=== PATIENT | female | born 1990 | race Caucasian/White ===

== ENCOUNTER → 2018-01-05 | Outpatient (CLI) | payer OTHER ==
[~2018-01-05] MED LIST: LEXAPRO 10 MG T10 MG PO; NABUMETONE 500500 M1 PO; NOHOMEMEDICATIONS
--- NOTE | 2018-01-06 09:37 | PAINCON ---
[place] [address] PAIN MANAGEMENT CONSULTATION Name: TETO HARRIS [facility] [id number] Admission: 01/05/18 Attend Phys: Antoinette Grubbs Discharge: Date of : 89 Report #: [id number] THIS REPORT FOR: //name// CC: Mary Jane Villaseñor DATE OF SERVICE: 01/05/2018 REFERRING PHYSICIAN: Mary Jane Dasilva DO. The patient is a very pleasant 27-year-old female, seen in consultation at the request of Dr. Dasilva for assistance with management of pain, low back and left leg. The patient has a very interesting medical history. 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 She has multiple cafe au lait spots over her body. Has a large neurofibroma on the right side of her face. Due to change in parental employment, she has been seen at multiple pediatric centers including [place], [place] and [place]. She moved to [place] around 2010. She has been followed at [facility] by Dr. Frankie Medrano. She notes she has had some chronic pain low back, left leg, but notes the past year, symptoms have been getting worse with weakness in the left leg, increasing pain in the lateral aspect of the leg to the foot. She notes periodic shooting, cramping, aching, sharp pain that she rates anywhere from 0-7 on a visual analog scale. She denies any myelopathic symptoms. No bowel or bladder incontinence. REVIEW OF SYSTEMS: Complete review of systems was attached to chart and gone over with the patient. She is single, seen in the company of her mother who is supportive. 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 She does not smoke or drink alcohol to excess. Does have a little chronic anxiety for which she takes Lexapro. Has been taking NSAID agents for some time with nominal efficacy. She had 3 spontaneous pneumothorax in 2010, 2 treated with chest tube. Symptoms have been unremarkable since. Pain impact score is fairly modest. PHYSICAL EXAMINATION: Reveals a 5 feet 2 inches, 129-pound female, BMI is 23.4 kg/m2. Blood pressure is 131/77, pulse 79, respirations are 16. She is alert and oriented to person, place, and time, judged to be a reasonable historian. Extraocular muscles are intact. There is no nyst[place] [address] PAIN MANAGEMENT CONSULTATION Name: TETO HARRIS Room: [facility]#: [id number] Admission: 01/05/18 Attend Phys: Antoinette Grubbs Discharge: Date of : 92 Report #: [id number] deviation. Does have a neurofibroma in the right side of the head and temporal area. Cervical range of motion is generally full. Thyroid is modestly enlarged. Upper extremity strength is generally preserved. Deep tendon reflexes are symmetric. Heart is regular and rhythmical without murmur. Lungs are clear to auscultation. Rises from chair using armrest. Does have a little thoracolumbar scoliosis. Lumbar flexion is good to about 90 degrees. Does have some left gluteal hypertrophy. Left leg is diminished in strength . Hip flexion and extension and plantar flexion about 3/5. Right leg is little stronger 4/5. Grossly positive straight leg raise at 30 degrees on the left. SVEN test is negative. Hip range of motion is full. DIAGNOSTIC STUDIES: Most recent diagnostic study is MRI of 12/09/2017. I reviewed this with the patient today. Does have some enlargement of the right S1-S2, S2-S3, S3-S4 neural foramen on the right and enlargement of the left S1-S2 sacral foramen. L4-L5 notes mild bilateral facet arthropathy. I believe primary pathology is coming from the L5-S1 area where there is a 0.5 cm anterolisthesis, some enlargement of the spinal canal, bilateral facet arthropathy and moderate left as well as moderate to advance right neural foraminal stenosis. There is dextroconvex scoliosis noted in the lumbar spine. ASSESSMENT: Symptomatic lumbar radiculopathy in left L5 radicular pattern in a patient with neurofibromatosis. RECOMMENDATION: 1. Discussion with the patient and her mother today about therapeutic option. I would like to continue nonsteroidal anti-inflammatory, discontinue vtbr-hoe-pditeve anti-inflammatories. We will start nabumetone 5 mg b.i.d. for 30 days. 2. We discussed proceeding with epidural injection under fluoroscopy next week. If this affords transient relief, we can consider repeat injection. If this affords good incremental relief, we will simply see on an as needed basis. Thanks for allowing me to participate in the patient's care. We will keep you abreast of her progress. <ELECTRONICALLY SIGNED> By: Zain Dumont DO 01/06/18 0937 1349 1914Zain Dumont DO /nt
== END ==
LOC: M.PC 04:40
DX: M54.16 Radiculopathy, lumbar region (principal); Q85.00 Neurofibromatosis, unspecified

== ENCOUNTER → 2018-01-12 | Outpatient (CLI) | payer OTHER ==
--- NOTE | 2018-01-17 08:35 | PAINCON ---
[facility] [address] [place] [address] PAIN MANAGEMENT CONSULTATION Name: TETO HARRIS [facility] [id number] Admission: 01/12/18 Attend Phys: Antoinette Grubbs Discharge: Date of : 92 Report #: [id number] THIS REPORT FOR: //name// CC: Maggie Dumont DATE OF SERVICE: 01/12/2018 PAIN CLINIC NOTE SUBJECTIVE: The patient is a very pleasant 27-year-old female seen in consultation on 01/05/2018 diagnosed with symptomatic lumbar radiculopathy secondary component of neurofibromatosis. We sought authorization for epidural injection under fluoroscopy today. I had given the patient a prescription for nabumetone 500 mg b.i.d. at that time; however, she did not get the prescriptions filled. She is continuing to use [id number] NSAID. Physical exam today is unchanged. Subjective pain score is 3 on a VAS. Pain down to the left leg. ASSESSMENT: Symptomatic lumbar radiculopathy, clinical exam and history. RECOMMENDATION: Lumbar epidural injection under fluoroscopy. PROCEDURE NOTE: After both written and informed consent to include risk of spinal cord damage, increased pain, weakness and dural puncture, the patient was taken to the fluoroscopy suite, placed in the prone position. After sterile prep and drape, a skin wheal with lidocaine was raised. A 22-gauge epidural Tuohy needle was inserted in the midline at L4-L5 with good loss to resistance. Negative aspiration for cerebrospinal fluid or blood was noted. Then 1 mL of Omnipaque under biplanar fluoroscopy showed good spread within the epidural space. This was followed with 80 mg of triamcinolone plus 1 mL of 1.5% preservative-free Xylocaine, 0.5 mL Xylocaine was then injected to flush the needle; it was removed. The patient was monitored for an appropriate period of time and discharged in good and stable condition. <ELECTRONICALLY SIGNED> By: Zain Dumont DO 01/17/18 0835 1339 [id number] Dumont DO /nt
== END | disposition home or self-care (01) ==
LOC: M.PC 03:00
DX: M54.16 Radiculopathy, lumbar region (principal); Q85.01 Neurofibromatosis, type 1; G89.29 Other chronic pain; F41.8 Other specified anxiety disorders; Z79.1 Long term (current) use of non-steroidal anti-inflammatories (NSAID); Z87.09 Personal history of other diseases of the respiratory system

== ENCOUNTER → 2018-02-02 | Outpatient (CLI) | payer OTHER ==
--- NOTE | 2018-02-03 07:50 | PAINCON ---
[address] [address] PAIN MANAGEMENT CONSULTATION Name: TETO HARRIS Room: [facility] Jo#: [id number] Admission: 02/02/18 Attend Phys: Antoinette Grubbs Discharge: Date of : 92 Report #: [id number] THIS REPORT FOR: //name// CC: Maggie Dumont The patient is a very pleasant 28-year-old female, prior seen in the pain clinic 01/12/2018, we did a single epidural injection at that time, returns to pain clinic today noting incremental improvement of baseline pain, perhaps 50%, still has a chronic weakness in the left leg, though this predated her radicular symptoms. She is improving function. Straight leg raise is equivocal on the left. She still has pain that interferes with function. Discussion with the patient today about therapeutic option. We have elected to repeat lumbar epidural injection under fluoroscopy today. Follow up in 4 weeks to reevaluate. ASSESSMENT: Symptomatic lumbar radiculopathy by clinical exam and history, incremental improvement of baseline pain. RECOMMENDATION: Epidural injection under fluoroscopy today, midline at L5-S1. Discharged in good and stable condition. <ELECTRONICALLY SIGNED> By: Zain Dumont DO 02/03/18 0750 1420 [id number] Centermachelle Dumont DO /nt
--- NOTE | 2018-02-09 07:25 | PAINCON ---
[address] [address] PAIN MANAGEMENT CONSULTATION Name: TETO HARRIS [id number] Admission: 02/02/18 Attend Phys: Antoinette Grubbs Discharge: Date of : 89 Report #: [id number] THIS REPORT FOR: //name// CC: Maggie Dumont PROCEDURE: Lumbar epidural injection under fluoroscopy. INDICATION: Symptomatic lumbar radiculopathy with incremental improvement following single injection. PROCEDURE NOTE: After both written and informed consent to include risk of spinal cord damage, increased pain, weakness and dural puncture, the patient was taken to the fluoroscopy suite, placed in the prone position. After sterile prep and drape, a skin wheal with lidocaine was raised. A 22-gauge epidural Tuohy needle was inserted in the midline at L5-S1 with good loss to resistance. Negative aspiration for cerebrospinal fluid or blood was noted. Then 1 mL of Omnipaque under biplanar fluoroscopy showed good spread within the epidural space. This was followed with 80 mg of triamcinolone plus 1 mL of 1.5% preservative-free Xylocaine, 0.5 mL Xylocaine was then injected to flush the needle; it was removed. The patient was monitored for an appropriate period of time and discharged in good and stable condition. <ELECTRONICALLY SIGNED> By: Zain Dumont DO 02/09/18 0725 0743 [id number] Dumont DO /duane
== END | disposition home or self-care (01) ==
LOC: M.PC 03:56
DX: M54.16 Radiculopathy, lumbar region (principal); G89.29 Other chronic pain; Z98.890 Other specified postprocedural states; Z79.899 Other long term (current) drug therapy

== ENCOUNTER → 2018-02-23 | Outpatient (CLI) | payer OTHER ==
--- NOTE | 2018-02-24 06:59 | PAINCON ---
[address] [address] PAIN MANAGEMENT CONSULTATION Name: TETO HARRIS Room: [facility] Jo#: [id number] Admission: 02/23/18 Attend Phys: Antoinette Grubbs Discharge: Date of : 92 Report #: [id number] THIS REPORT FOR: //name// CC: Maggie Dumont The patient is a 28-year-old female, being treated for symptomatic lumbar radiculopathy, comorbidity includes history of neurofibromatosis. Last seen in the pain clinic 02/02/2018. We did a second epidural injection, which the patient reports over 70% overall improvement; she still, however, has pain in the right leg, which is exacerbated with activity. 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 She notes the right leg occasionally goes to sleep and has some subjective weakness with this maneuver. PHYSICAL EXAMINATION: Shows a pleasant 28-year-old female, BMI is 23.7 kg/m2. Blood pressure 125/81, pulse 66, and respirations 16. Rises from chair using armrest. Gait is modestly antalgic favoring the right leg (chronic left lower extremity weakness by history), does have some left gluteal hypertrophy secondary to neurofibromatosis. Positive straight leg raise on the left. ASSESSMENT: Symptomatic lumbar radiculopathy by clinical exam and history. The patient said good incremental relief greater than 60% with 2 injections, but still has pain that continues to be problematic. We elected to proceed with repeat epidural injection under fluoroscopy today and follow up simply as needed. PROCEDURE: Lumbar epidural injection under fluoroscopy. PROCEDURE NOTE: After both written and informed consent to include risk of spinal cord damage, increased pain, weakness and dural puncture, the patient was taken to the fluoroscopy suite, placed in the prone position. After sterile prep and drape, a skin wheal with lidocaine was raised. A 22-gauge epidural Tuohy needle was inserted in the midline at L4-L5 with good loss to resistance. Negative aspiration for cerebrospinal fluid or blood was noted. Then 1 mL of Omnipaque under biplanar fluoroscopy showed good spread within the epidural space. This was followed with 80 mg of triamcinolone plus 1 mL of 1.5% preservative-free Xylocaine, 0.5 mL Xylocaine was then injected to flush the needle; it was removed. The patient was monitored for an appropriate period of time and discharged in good and stable condition. <ELECTRONICALLY SIGNED> By: Zain Dumont DO 02/24/18 0659 1229 [id number] Dumont DO /duane
== END | disposition home or self-care (01) ==
LOC: M.PC 00:27
DX: M54.16 Radiculopathy, lumbar region (principal); G89.29 Other chronic pain; Q85.00 Neurofibromatosis, unspecified; Z98.890 Other specified postprocedural states